=== PATIENT | male | born 1945 | race Caucasian/White ===

== ENCOUNTER 2017-10-21 12:35 | Inpatient (IN) | payer MEDICARE ==
[~2017-10-21] VITALS: Ht 172.7 cm; Wt 84.4 kg
[2017-10-21] VITALS (13 sets, daily range): BP systolic 92–123; BP diastolic 53–80
[2017-10-21 13:13] LABS: BASOPHILS % (AUTO) 0.4 % (0.0-5.0); EOSINOPHILS % (AUTO) 1.7 % (0.0-8.0); HEMATOCRIT 36.7 % (42-54); LYMPHOCYTES % (AUTO) 11.7 % (21.0-51.0); MEAN CORPUSCULAR HEMOGLOBIN 33.5 pg (27.0-33.0); MEAN CORPUSCULAR HGB CONC 34.1 g/dL (32.0-36.0); MEAN CORPUSCULAR VOLUME 98.1 fL (79-99); NEUTROPHILS % (AUTO) 75.2 % (40.0-77.0); PLATELET COUNT (AUTO) 137 K/uL (130-400); RED BLOOD CELL COUNT(AUTO) 3.74 MIL/uL (4.50-6.20); RED CELL DISTRIBUTION WIDTH 14.1 % (11.0-15.5); WHITE BLOOD COUNT (AUTO) 5.1 K/uL (4.8-10.8)
[2017-10-21 13:23] LABS: CREATININE 1.6 mg/dL (0.5-1.5); POTASSIUM 4.6 mmol/L (3.5-5.1)
[2017-10-21 13:36] LABS: ALBUMIN 3.3 g/dL (3.5-5.0); BILIRUBIN,TOTAL 0.7 mg/dL (0.2-1.0); CREATINE KINASE MB 1.4 ng/mL (0.5-3.6); TOTAL PROTEIN, SERUM 7.4 g/dL (6.0-8.3)
[2017-10-21 13:43] LABS: INR 2.95 (0.85-1.15); PROTHROMBIN TIME 30.3 SEC (9.6-11.6)
[2017-10-21 14:21] LABS: APPEARANCE,URINE Clear (CLEAR); BILIRUBIN,URINE Negative (NEGATIVE); COLOR,URINE Yellow (YELLOW); GLUCOSE, URINE (UA) Negative (NEGATIVE); KETONES,URINE Negative (NEGATIVE); LEUKOCYTE ESTERASE ,URINE Negative (NEGATIVE); NITRATE,URINE Negative (NEGATIVE); OCCULT BLOOD,URINE Negative (NEGATIVE); PH,URINE 6.5 (5.0-8.0); PROTEIN,URINE Negative (NEGATIVE); UROBILINOGEN,URINE 0.2 mg/dL (0.2-1.0)
[2017-10-21] MEDS ORDERED: LIDOCAINE 2G/250ML 250 ML IV ONE (14:38)
[2017-10-21 21:44] LABS: CREATINE KINASE, TOTAL 33 U/L (21-232); MYOGLOBIN 72 ng/mL (10-92); TROPONIN I < 0.04 ng/mL (0.00-0.06)
[2017-10-21] MEDS ORDERED: ACETAMINOPHEN 325 MG TAB PO PRN ×2 (22:45)
[2017-10-21] MEDS ORDERED: LACTULOSE 20 GM/30 ML UDCUP PO PRN (22:45)
[2017-10-21] MEDS ORDERED: CLONIDINE HCL 0.1 MG TABLET PO PRN (22:45)
[2017-10-21] MEDS ORDERED: POTASSIUM CHLORIDE 20 MEQ ERTAB PO PRN (23:30)
[2017-10-21] MEDS ORDERED: POTASSIUM CHLORIDE 20MEQ/100ML 100 ML IV PRN (23:30)
[2017-10-21] MEDS ORDERED: LIDOCAINE HCL-MPF 1% 2ML VIAL IVP PRN (23:30)
[2017-10-21] MEDS ORDERED: POTASSIUM CHLORIDE 10% ELIXIR 20 MEQ/15 ML UDCUP PO PRN (23:30)
[2017-10-22] VITALS (24 sets, daily range): BP systolic 95–151; BP diastolic 55–99
[2017-10-22 05:45] LABS: BASOPHILS % (AUTO) 0.4 % (0.0-5.0); EOSINOPHILS % (AUTO) 0.8 % (0.0-8.0); HEMATOCRIT 36.2 % (42-54); MEAN CORPUSCULAR HEMOGLOBIN 34.1 pg (27.0-33.0); MEAN CORPUSCULAR HGB CONC 35.1 g/dL (32.0-36.0); MEAN CORPUSCULAR VOLUME 97.2 fL (79-99); MONOCYTES % (AUTO) 9.4 % (3.0-13.0); NEUTROPHILS % (AUTO) 75.4 % (40.0-77.0); PLATELET COUNT (AUTO) 135 K/uL (130-400); RED BLOOD CELL COUNT(AUTO) 3.73 MIL/uL (4.50-6.20); RED CELL DISTRIBUTION WIDTH 14.1 % (11.0-15.5); WHITE BLOOD COUNT (AUTO) 6.3 K/uL (4.8-10.8)
[2017-10-22 05:58] LABS: INR 2.45 (0.85-1.15); PROTHROMBIN TIME 25.3 SEC (9.6-11.6)
[2017-10-22 06:16] LABS: CARBON DIOXIDE 25 mmol/L (21-32); CHLORIDE 106 mmol/L (101-111); CREATINE KINASE MB 0.9 ng/mL (0.5-3.6); CREATINE KINASE, TOTAL 26 U/L (21-232); CREATININE 1.6 mg/dL (0.5-1.5); GLOMERULAR FILTR. RATE CALC 45 mL/min (>60); GLUCOSE,RANDOM 91 mg/dL (70-105); MYOGLOBIN 58 ng/mL (10-92); PHOSPHORUS 4.2 mg/dL (2.5-4.9); POTASSIUM 4.4 mmol/L (3.5-5.1); SODIUM SERUM 140 mmol/L (136-145); THYROID STIMULATING HORMONE 4.27 uIU/mL (0.36-3.74); TROPONIN I < 0.04 ng/mL (0.00-0.06); UREA NITROGEN, BLOOD 26 mg/dL (7-18)
[2017-10-22] MEDS ORDERED: CARV12.511 PO (06:44)
[2017-10-22] MEDS ORDERED: WARF2.5T85 PO (06:44)
[2017-10-22] MEDS ORDERED: OMEP20CA10 PO (06:44)
[2017-10-22] MEDS ORDERED: SPIR25TA6 PO (06:44)
[2017-10-22] MEDS ORDERED: WARF-57 PO (06:44)
[2017-10-22] MEDS ORDERED: FURO40TA5 PO (06:44)
[2017-10-22] MEDS ORDERED: LISI-617 PO (06:44)
[2017-10-22] MEDS: FAMOTIDINE 20MG TAB 20 MG TAB PO SCH (08:33)
[2017-10-22] MEDS ORDERED: ENOXAPARIN SODIUM 40 MG/0.4 ML SYRINGE SQ SCH (09:00)
[2017-10-22] MEDS: MAGNESIUM 2GM PREMIX 50ML 50 ML IV PRN (11:07)
[2017-10-22] MEDS ORDERED: SODIUM CHLORIDE 0.9% 1000ML 1,000 ML IV ONE (14:47)
[2017-10-22] MEDS ORDERED: PHARMACY COMMUNICATION MISC SCH (15:15)
[2017-10-22] MEDS: LIDOCAINE 2G/250ML 250 ML IV SCH (16:55)
[2017-10-22] MEDS ORDERED: POTA10CA44 PO (17:29)
[2017-10-22] MEDS ORDERED: FUROSEMIDE 10 MG/ML 4ML VIAL IV SCH (17:53)
[2017-10-22] MEDS: NITROGLYCERIN 1GM/1 INCH PACKET TD SCH (18:01)
[2017-10-22] MEDS: CARVEDILOL 12.5 MG TABLET PO SCH (21:06)
[2017-10-23] VITALS (23 sets, daily range): BP systolic 91–110; BP diastolic 47–77
[2017-10-23] MEDS: NITROGLYCERIN 1GM/1 INCH PACKET TD SCH ×4 (00:06→17:34)
[2017-10-23 04:14] LABS: HEMATOCRIT 36.2 % (42-54); MEAN CORPUSCULAR HEMOGLOBIN 34.8 pg (27.0-33.0); MEAN CORPUSCULAR HGB CONC 35.4 g/dL (32.0-36.0); MEAN CORPUSCULAR VOLUME 98.2 fL (79-99); PLATELET COUNT (AUTO) 129 K/uL (130-400); RED BLOOD CELL COUNT(AUTO) 3.68 MIL/uL (4.50-6.20); RED CELL DISTRIBUTION WIDTH 14.4 % (11.0-15.5); WHITE BLOOD COUNT (AUTO) 8.1 K/uL (4.8-10.8)
[2017-10-23 04:30] LABS: INR 2.02 (0.85-1.15); PROTHROMBIN TIME 20.9 SEC (9.6-11.6)
[2017-10-23 04:36] LABS: CREATININE 1.7 mg/dL (0.5-1.5); MAGNESIUM 2.1 mg/dL (1.80-2.40); POTASSIUM 4.7 mmol/L (3.5-5.1)
[2017-10-23] MEDS: LIDOCAINE 2G/250ML 250 ML IV SCH ×2 (06:44→19:47)
[2017-10-23 06:51] LABS: INR 1.97 (0.85-1.15); PROTHROMBIN TIME 20.4 SEC (9.6-11.6)
[2017-10-23] MEDS ORDERED: IOPAMIDOL-370 75 ML VIAL IV ONE (07:10)
[2017-10-23] MEDS ORDERED: LIDOCAINE PF 2% 5ML ABBOJECT ONE (07:10)
[2017-10-23] MEDS ORDERED: HEPARIN SODIUM 1000UNIT/ML 10ML VIAL ONE ×2 (07:10→09:48)
[2017-10-23] MEDS ORDERED: MEPERIDINE-PF 25 MG/ML SYG ONE (07:10)
[2017-10-23] MEDS ORDERED: MIDAZOLAM HCL 1 MG/ML 2ML VIAL ONE (07:10)
[2017-10-23] MEDS ORDERED: IOPAMIDOL-370 100 ML VIAL IV ONE ×2 (07:10→08:00)
[2017-10-23] MEDS ORDERED: NITROGLYCERIN 5 MG/ML 10 ML VIAL IV ONE (07:10)
[2017-10-23] MEDS ORDERED: ISOVUE-370 50ML VIAL IV ONE (07:10)
[2017-10-23] MEDS ORDERED: LIDOCAINE HCL 2% 20ML ONE (07:10)
[2017-10-23] MEDS ORDERED: SODIUM BICARB 50MEQ 50ML VIAL ONE (07:11)
[2017-10-23] MEDS ORDERED: FUROSEMIDE 40 MG TABLET PO SCH (09:00)
[2017-10-23] MEDS ORDERED: TICAGRELOR 90 MG TABLET ONE (10:55)
[2017-10-23] MEDS ORDERED: SODIUM CHLORIDE 0.9% 500ML 500 ML IV SCH (11:02)
[2017-10-23] MEDS ORDERED: ONDANSETRON HCL 4 MG/2 ML VIAL IVP SCH (11:15)
[2017-10-23] MEDS ORDERED: MORPHINE SULFATE 5 MG/ML VIAL IVP SCH (11:15)
[2017-10-23] MEDS ORDERED: ONDANSETRON HCL 4 MG/2 ML VIAL IVP PRN (11:15)
[2017-10-23] MEDS ORDERED: MORPHINE SULFATE 4 MG/1ML SYG IV PRN (11:15)
[2017-10-23] MEDS ORDERED: MORPHINE SULFATE 5 MG/ML VIAL IV PRN (11:15)
[2017-10-23] MEDS ORDERED: HEPARIN 25000 UNITS/250 ML D5W 250 ML IV PRN (11:15)
[2017-10-23] MEDS ORDERED: PHARMACY COMMUNICATION MISC SCH ×2 (11:30→12:30)
[2017-10-23] MEDS ORDERED: DEXTROSE 5%-WATER 500 ML IV ONE (12:32)
[2017-10-23] MEDS ORDERED: HEPARIN SODIUM 5000 UNIT/ML 25,000 UNIT in DEXTROSE 5%-WATER 500 ML SQ SCH (12:45)
[2017-10-23] MEDS ORDERED: ALPRAZOLAM 0.5 MG TABLET ONE (12:49)
[2017-10-23] MEDS: FUROSEMIDE 10 MG/ML 4ML VIAL IV SCH (12:50)
[2017-10-23] MEDS: CARVEDILOL 12.5 MG TABLET PO SCH ×2 (12:51→21:11)
[2017-10-23] MEDS: ALPRAZOLAM 0.5 MG TABLET PO SCH ×2 (12:51→21:12)
[2017-10-23] MEDS: SPIRONOLACTONE 25 MG TAB PO SCH (12:54)
[2017-10-23] MEDS: FAMOTIDINE 20MG TAB 20 MG TAB PO SCH (12:54)
[2017-10-23] MEDS: LISINOPRIL 5 MG TABLET PO SCH (12:55)
[2017-10-23] MEDS: SODIUM CHLORIDE 0.9% 1000ML 1,000 ML IV SCH ×2 (12:56→19:44)
[2017-10-23 13:13] LABS: HEMATOCRIT 34.5 % (42-54); MEAN CORPUSCULAR HEMOGLOBIN 34.1 pg (27.0-33.0); MEAN CORPUSCULAR HGB CONC 35.1 g/dL (32.0-36.0); MEAN CORPUSCULAR VOLUME 97.2 fL (79-99); PLATELET COUNT (AUTO) 119 K/uL (130-400); RED BLOOD CELL COUNT(AUTO) 3.55 MIL/uL (4.50-6.20); RED CELL DISTRIBUTION WIDTH 14.5 % (11.0-15.5); WHITE BLOOD COUNT (AUTO) 6.8 K/uL (4.8-10.8)
[2017-10-23 13:51] LABS: CREATINE KINASE MB 1.2 ng/mL (0.5-3.6); CREATININE 1.5 mg/dL (0.5-1.5); POTASSIUM 4.5 mmol/L (3.5-5.1); TROPONIN I 0.24 ng/mL (0.00-0.06)
[2017-10-23 14:10] LABS: B-TYPE NATRIURETIC PEPTIDE 2570 pg/mL (0-100)
[2017-10-23] MEDS: MEXILETINE HCL 150 MG CAP PO SCH ×2 (17:31→22:02)
[2017-10-23] MEDS: TICAGRELOR 90 MG TABLET PO SCH (21:11)
[2017-10-24] VITALS (36 sets, daily range): BP systolic 77–108; BP diastolic 39–79
[2017-10-24] MEDS: NITROGLYCERIN 1GM/1 INCH PACKET TD SCH ×3 (00:19→11:29)
[2017-10-24 04:15] LABS: HEMATOCRIT 32.9 % (42-54); MEAN CORPUSCULAR HEMOGLOBIN 34.3 pg (27.0-33.0); MEAN CORPUSCULAR HGB CONC 34.7 g/dL (32.0-36.0); MEAN CORPUSCULAR VOLUME 98.9 fL (79-99); PLATELET COUNT (AUTO) 97 K/uL (130-400); RED BLOOD CELL COUNT(AUTO) 3.33 MIL/uL (4.50-6.20); RED CELL DISTRIBUTION WIDTH 14.4 % (11.0-15.5); WHITE BLOOD COUNT (AUTO) 9.2 K/uL (4.8-10.8)
[2017-10-24 04:27] LABS: INR 1.68 (0.85-1.15); PARTIAL THROMBOPLASTIN TIME 52.5 SEC (26.3-35.5); PROTHROMBIN TIME 17.5 SEC (9.6-11.6)
[2017-10-24 05:25] LABS: ALBUMIN 2.5 g/dL (3.5-5.0); BILIRUBIN,TOTAL 1.6 mg/dL (0.2-1.0); POTASSIUM 4.7 mmol/L (3.5-5.1); TOTAL PROTEIN, SERUM 6.6 g/dL (6.0-8.3)
[2017-10-24] MEDS: MEXILETINE HCL 150 MG CAP PO SCH ×2 (05:32→13:01)
[2017-10-24 07:53] LABS: INR 1.68 (0.85-1.15); PARTIAL THROMBOPLASTIN TIME 51.6 SEC (26.3-35.5); PROTHROMBIN TIME 17.5 SEC (9.6-11.6)
[2017-10-24 08:38] LABS: INR 1.66 (0.85-1.15); PARTIAL THROMBOPLASTIN TIME 49.9 SEC (26.3-35.5); PROTHROMBIN TIME 17.3 SEC (9.6-11.6)
[2017-10-24] MEDS: LISINOPRIL 5 MG TABLET PO SCH (09:00)
[2017-10-24] MEDS: ALPRAZOLAM 0.5 MG TABLET PO SCH (09:00)
[2017-10-24] MEDS: CARVEDILOL 12.5 MG TABLET PO SCH (09:00)
[2017-10-24] MEDS ORDERED: SODIUM CHLORIDE 0.9% 1000ML 1,000 ML IV ONE (09:01)
[2017-10-24] MEDS: FUROSEMIDE 10 MG/ML 4ML VIAL IV SCH (10:01)
[2017-10-24] MEDS: SPIRONOLACTONE 25 MG TAB PO SCH (10:02)
[2017-10-24] MEDS: FAMOTIDINE 20MG TAB 20 MG TAB PO SCH (10:02)
[2017-10-24] MEDS: TICAGRELOR 90 MG TABLET PO SCH ×2 (10:03→20:31)
[2017-10-24] MEDS: MAGNESIUM 2GM PREMIX 50ML 50 ML IV PRN (13:10)
[2017-10-24] MEDS: APIXABAN 2.5 MG TABLET PO SCH (13:20)
[2017-10-24] MEDS: MILRINONE-D5W 20 MG/100 ML 100 ML IV SCH (13:38)
[2017-10-24 13:44] LABS: MAGNESIUM 2.1 mg/dL (1.80-2.40); POTASSIUM 4.8 mmol/L (3.5-5.1)
[2017-10-24 15:06] LABS: ABG BASE EXCESS -7.8 mmol/L (-2.0-3.0); ABG HCO3 16.2 mmol/L (21.0-28.0); ABG OXYGEN SATURATION 98.8 % (95.0-99.0); ABG PCO2 30 mmHg (35-48)
[2017-10-24] MEDS ORDERED: SODIUM BICARB 50MEQ 50ML VIAL ONE (15:13)
[2017-10-24] MEDS ORDERED: SODIUM BICARB 50MEQ 50ML VIAL IV ONE (15:15)
[2017-10-24] MEDS ORDERED: HEPARIN SODIUM 5000UNIT/ML 1ML VIAL IV PRN (15:30)
[2017-10-24] MEDS: FUROSEMIDE 10 MG/ML 2ML VIAL IV SCH (17:24)
[2017-10-24] MEDS ORDERED: LIDOCAINE 2G/250ML 250 ML IV ONE (18:32)
[2017-10-24] MEDS ORDERED: PHARMACY COMMUNICATION MISC SCH ×2 (18:45)
[2017-10-24] MEDS ORDERED: LIDOCAINE PF 2% 5ML ABBOJECT IVP ONE (18:45)
[2017-10-24 19:58] LABS: CREATINE KINASE MB 4.9 ng/mL (0.5-3.6)
[2017-10-24 20:00] LABS: TROPONIN I 3.08 ng/mL (0.00-0.06)
[2017-10-24] MEDS ORDERED: FUROSEMIDE 10 MG/ML 2ML VIAL IV SCH (21:00)
[2017-10-25] VITALS (27 sets, daily range): BP systolic 71–121; BP diastolic 38–79
[2017-10-25] MEDS ORDERED: LIDOCAINE PF 2% 5ML ABBOJECT ONE (01:12)
[2017-10-25] MEDS: MAGNESIUM 2GM PREMIX 50ML 50 ML IV PRN (01:27)
[2017-10-25] MEDS: FUROSEMIDE 10 MG/ML 2ML VIAL IV SCH ×3 (02:00→18:30)
[2017-10-25 04:13] LABS: HEMATOCRIT 29.9 % (42-54); MEAN CORPUSCULAR HEMOGLOBIN 34.4 pg (27.0-33.0); MEAN CORPUSCULAR HGB CONC 34.7 g/dL (32.0-36.0); MEAN CORPUSCULAR VOLUME 99.2 fL (79-99); PLATELET COUNT (AUTO) 64 K/uL (130-400); RED BLOOD CELL COUNT(AUTO) 3.02 MIL/uL (4.50-6.20); RED CELL DISTRIBUTION WIDTH 14.8 % (11.0-15.5); WHITE BLOOD COUNT (AUTO) 12.2 K/uL (4.8-10.8)
[2017-10-25] MEDS ORDERED: AMIODARONE HCL 50 MG/ML 3 ML VIAL ONE (04:13)
[2017-10-25] MEDS ORDERED: DEXTROSE 5%-WATER 1,000 ML IV ONE (04:15)
[2017-10-25 04:19] LABS: CREATININE 3.3 mg/dL (0.5-1.5)
[2017-10-25 04:29] LABS: INR 1.64 (0.85-1.15); PARTIAL THROMBOPLASTIN TIME 40.1 SEC (26.3-35.5); PROTHROMBIN TIME 17.1 SEC (9.6-11.6)
[2017-10-25] MEDS ORDERED: AMIODARONE HCL 900 MG in DEXTROSE 5%-WATER 500 ML IV SCH (06:30)
[2017-10-25] MEDS: APIXABAN 2.5 MG TABLET PO SCH ×2 (08:07→20:51)
[2017-10-25] MEDS: FAMOTIDINE 20MG TAB 20 MG TAB PO SCH (08:07)
[2017-10-25] MEDS: TICAGRELOR 90 MG TABLET PO SCH ×2 (08:07→20:51)
[2017-10-25 08:58] LABS: HEMATOCRIT 30.1 % (42-54); MEAN CORPUSCULAR HEMOGLOBIN 34.8 pg (27.0-33.0); MEAN CORPUSCULAR HGB CONC 35.1 g/dL (32.0-36.0); MEAN CORPUSCULAR VOLUME 99.1 fL (79-99); PLATELET COUNT (AUTO) 114 K/uL (130-400); RED BLOOD CELL COUNT(AUTO) 3.04 MIL/uL (4.50-6.20); RED CELL DISTRIBUTION WIDTH 14.7 % (11.0-15.5); WHITE BLOOD COUNT (AUTO) 11.3 K/uL (4.8-10.8)
[2017-10-25 09:23] LABS: CREATINE KINASE MB 4.2 ng/mL (0.5-3.6)
[2017-10-25 09:55] LABS: B-TYPE NATRIURETIC PEPTIDE 3220 pg/mL (0-100)
[2017-10-25 10:09] LABS: TROPONIN I 1.95 ng/mL (0.00-0.06)
[2017-10-25 10:24] LABS: ALBUMIN 2.5 g/dL (3.5-5.0); BILIRUBIN,TOTAL 0.8 mg/dL (0.2-1.0); CREATININE 3.8 mg/dL (0.5-1.5); POTASSIUM 4.1 mmol/L (3.5-5.1); TOTAL PROTEIN, SERUM 6.1 g/dL (6.0-8.3)
[2017-10-25] MEDS ORDERED: AMIODARONE HCL 150 MG in DEXTROSE 5%-WATER 100 ML IV SCH (10:33)
[2017-10-25] MEDS ORDERED: DIGOXIN 250 MCG/ML 2ML AMP ONE (12:10)
[2017-10-25] MEDS ORDERED: MORPHINE SULFATE 10 MG/ML 1ML SYG ONE (12:12)
[2017-10-25] MEDS ORDERED: DIGOXIN 250 MCG/ML 2ML AMP IV SCH ×3 (12:15→19:00)
[2017-10-25] MEDS ORDERED: MORPHINE SULFATE 5 MG/ML VIAL IV SCH (12:15)
[2017-10-25] MEDS ORDERED: PHARMACY COMMUNICATION MISC SCH ×2 (12:30→12:45)
[2017-10-25] MEDS ORDERED: PROCAINAMIDE HCL IVP SCH (12:45)
[2017-10-25] MEDS ORDERED: SODIUM CHLORIDE 0.9% IVP SCH (12:45)
[2017-10-25] MEDS ORDERED: PROCAINAMIDE HCL IVP NR (12:45)
[2017-10-25] MEDS ORDERED: SODIUM CHLORIDE 0.9% IVP NR (12:45)
[2017-10-25] MEDS: MILRINONE-D5W 20 MG/100 ML 100 ML IV SCH (12:54)
[2017-10-25] MEDS: LIDOCAINE 2G/250ML 250 ML IV SCH (12:56)
[2017-10-25] MEDS ORDERED: LIDOCAINE 2G/250ML 250 ML IV SCH (13:00)
[2017-10-25 18:35] LABS: APPEARANCE,URINE TURBID (CLEAR); BILIRUBIN,URINE NEGATIVE (NEGATIVE); COLOR,URINE BROWN (YELLOW); GLUCOSE, URINE (UA) NEGATIVE (NEGATIVE); KETONES,URINE NEGATIVE (NEGATIVE); LEUKOCYTE ESTERASE ,URINE MODERATE (NEGATIVE); NITRATE,URINE NEGATIVE (NEGATIVE); OCCULT BLOOD,URINE LARGE (NEGATIVE); PROTEIN,URINE 30 (NEGATIVE); UROBILINOGEN,URINE 0.2 mg/dL (0.2-1.0)
[2017-10-25 18:38] LABS: SODIUM,URINE RANDOM 24 mmol/l (40-220)
[2017-10-25 18:45] LABS: BACTERIA,URINE Moderate /HPF (None Seen); RBC,URINE 51-100 /HPF (0-1); WBC,URINE >100 /HPF (0-1)
[2017-10-25 18:46] LABS: SQUAMOUS EPITHELIAL CELL,UR Rare /HPF (0-2)
[2017-10-25 18:47] LABS: AMORPHOUS SEDIMENT,UR Few /LPF (None Seen); COARSE GRANULAR CASTS,URINE 26-50 /LPF (None Seen)
[2017-10-25 18:48] LABS: MUCUS,URINE Rare LPF (None Seen)
[2017-10-26] VITALS (27 sets, daily range): BP systolic 80–114; BP diastolic 29–73
[2017-10-26] MEDS: FUROSEMIDE 10 MG/ML 2ML VIAL IV SCH ×3 (02:15→21:31)
[2017-10-26 04:15] LABS: HEMATOCRIT 29.6 % (42-54); MEAN CORPUSCULAR HEMOGLOBIN 33.8 pg (27.0-33.0); MEAN CORPUSCULAR HGB CONC 34.8 g/dL (32.0-36.0); MEAN CORPUSCULAR VOLUME 97.3 fL (79-99); PLATELET COUNT (AUTO) 133 K/uL (130-400); RED BLOOD CELL COUNT(AUTO) 3.04 MIL/uL (4.50-6.20); RED CELL DISTRIBUTION WIDTH 14.2 % (11.0-15.5); WHITE BLOOD COUNT (AUTO) 10.3 K/uL (4.8-10.8)
[2017-10-26] MEDS: LIDOCAINE 2G/250ML 250 ML IV SCH (04:26)
[2017-10-26] MEDS: MILRINONE-D5W 20 MG/100 ML 100 ML IV SCH ×2 (04:27→20:36)
[2017-10-26 04:30] LABS: PLATELET MORPHOLOGY COMMENT ADEQUATE
[2017-10-26 04:36] LABS: EOSINOPHILS % (MANUAL) 2 % (1-6); LYMPHOCYTES % (MANUAL) 3 % (22-44); MAN.DIFF COMMENT-IMPRESSION MANUAL DIFFERENTIAL; MONOCYTES % (MANUAL) 14 % (2-9); SEGMENTED NEUTROPHILS % 81 % (40-70)
[2017-10-26 04:56] LABS: ALBUMIN 2.4 g/dL (3.5-5.0); BILIRUBIN,TOTAL 0.6 mg/dL (0.2-1.0); CREATINE KINASE MB 5.6 ng/mL (0.5-3.6); CREATININE 4.7 mg/dL (0.5-1.5); MAGNESIUM 2.9 mg/dL (1.80-2.40); PHOSPHORUS 5.1 mg/dL (2.5-4.9); POTASSIUM 4.2 mmol/L (3.5-5.1); TOTAL PROTEIN, SERUM 6.2 g/dL (6.0-8.3); URIC ACID 8.3 mg/dL (2.6-7.2)
[2017-10-26 04:57] LABS: TROPONIN I 2.56 ng/mL (0.00-0.06)
[2017-10-26] MEDS: TICAGRELOR 90 MG TABLET PO SCH ×2 (09:36→21:31)
[2017-10-26] MEDS: THIAMINE HCL 100 MG/ML 2ML VIAL IVP SCH (09:36)
[2017-10-26] MEDS: FAMOTIDINE 20MG TAB 20 MG TAB PO SCH (09:37)
[2017-10-26] MEDS: APIXABAN 2.5 MG TABLET PO SCH ×2 (09:37→21:31)
[2017-10-26] MEDS: FOLIC ACID/VITAMIN B COMP W-C 1 MG CAPSULE PO SCH (09:37)
[2017-10-26] MEDS: ALPRAZOLAM 0.25 MG TABLET PO SCH ×2 (14:24→21:31)
[2017-10-26] MEDS ORDERED: MORPHINE SULFATE 4 MG/1ML SYG IV PRN (19:15)
[2017-10-27] VITALS (24 sets, daily range): BP systolic 79–134; BP diastolic 42–87
[2017-10-27 03:53] LABS: HEMATOCRIT 28.1 % (42-54); MEAN CORPUSCULAR HEMOGLOBIN 35.4 pg (27.0-33.0); MEAN CORPUSCULAR VOLUME 98.2 fL (79-99); PLATELET COUNT (AUTO) 136 K/uL (130-400); RED BLOOD CELL COUNT(AUTO) 2.86 MIL/uL (4.50-6.20); RED CELL DISTRIBUTION WIDTH 14.3 % (11.0-15.5); WHITE BLOOD COUNT (AUTO) 8.8 K/uL (4.8-10.8)
[2017-10-27 04:27] LABS: ALBUMIN 2.3 g/dL (3.5-5.0); BILIRUBIN,TOTAL 0.5 mg/dL (0.2-1.0); CREATININE 5.7 mg/dL (0.5-1.5); MAGNESIUM 2.8 mg/dL (1.80-2.40); PHOSPHORUS 5.7 mg/dL (2.5-4.9); POTASSIUM 4.5 mmol/L (3.5-5.1); TOTAL PROTEIN, SERUM 5.8 g/dL (6.0-8.3)
[2017-10-27 04:29] LABS: TROPONIN I 1.16 ng/mL (0.00-0.06)
[2017-10-27 05:04] LABS: ABG HCO3 19.2 mmol/L (21.0-28.0); ABG OXYGEN SATURATION 98.2 % (95.0-99.0); ABG PCO2 33 mmHg (35-48)
[2017-10-27] MEDS: LIDOCAINE 2G/250ML 250 ML IV SCH (06:10)
[2017-10-27] MEDS ORDERED: AMIODARONE HCL 50 MG/ML 3 ML VIAL ONE (06:32)
[2017-10-27] MEDS ORDERED: SODIUM CHLORIDE 0.9% 100 ML IV ONE (06:32)
[2017-10-27] MEDS ORDERED: AMIODARONE HCL 150 MG in DEXTROSE 5%-WATER 100 ML IV SCH (06:45)
[2017-10-27] MEDS: ALPRAZOLAM 0.5 MG TABLET PO PRN ×2 (07:07→14:45)
[2017-10-27] MEDS ORDERED: METOPROLOL TARTRATE 1 MG/ML 5ML VIAL IV ONE ×4 (07:41→10:00)
[2017-10-27] MEDS: METOPROLOL TARTRATE 1 MG/ML 5ML VIAL IV ONE ×2 (07:56→08:00)
[2017-10-27] MEDS ORDERED: LIDOCAINE PF 2% 5ML ABBOJECT IV ONE (08:00)
[2017-10-27] MEDS ORDERED: METOPROLOL TARTRATE 25 MG TAB PO ONE (08:00)
[2017-10-27] MEDS: APIXABAN 2.5 MG TABLET PO SCH (09:00)
[2017-10-27] MEDS: THIAMINE HCL 100 MG/ML 2ML VIAL IVP SCH (09:00)
[2017-10-27] MEDS: FOLIC ACID/VITAMIN B COMP W-C 1 MG CAPSULE PO SCH (09:00)
[2017-10-27] MEDS: FAMOTIDINE 20MG TAB 20 MG TAB PO SCH (09:00)
[2017-10-27] MEDS: ALPRAZOLAM 0.25 MG TABLET PO SCH ×2 (09:00→20:17)
[2017-10-27] MEDS: TICAGRELOR 90 MG TABLET PO SCH (09:00)
[2017-10-27] MEDS: FUROSEMIDE 10 MG/ML 2ML VIAL IV SCH (11:17)
[2017-10-27] MEDS ORDERED: HALOPERIDOL 1 MG TABLET PO PRN (16:30)
[2017-10-27] MEDS ORDERED: LORAZEPAM 2 MG/ML 1 ML VIAL IVP PRN (16:45)
[2017-10-27] MEDS: MORPHINE SULFATE 2 MG/ML 1ML SYG IVP PRN ×3 (17:00→21:28)
[2017-10-27] MEDS ORDERED: DiphenhydrAMINE HCL 50 MG/ML VIAL ONE (18:49)
[2017-10-27] MEDS ORDERED: DiphenhydrAMINE HCL 50 MG/ML VIAL IV PRN (19:00)
[2017-10-27] MEDS ORDERED: FUROSEMIDE 10 MG/ML 2ML VIAL IV SCH (21:00)
[2017-10-28] MEDS: MORPHINE SULFATE 2 MG/ML 1ML SYG IVP PRN (00:03)
[2017-10-28] MEDS: ALPRAZOLAM 0.5 MG TABLET PO PRN (02:14)
== END 2017-10-28 06:22 | disposition expired | DRG 215 ==
LOC: EDH 12:35 → EDHIP 14:16 → 2CH 20:52
PROVIDERS: ADMIT Internal Medicine Pulmonary Disease; ATTEND Internal Medicine Pulmonary Disease
PROC: 027237Z Dilation of Coronary Artery, Three Arteries with Four or More Drug-eluting Intraluminal Devices, Percutaneous Approach (ICD-10-PCS; principal; 2017-10-23)
PROC: 4A023N7 Measurement of Cardiac Sampling and Pressure, Left Heart, Percutaneous Approach (ICD-10-PCS; 2017-10-23)
PROC: B2111ZZ Fluoroscopy of Multiple Coronary Arteries using Low Osmolar Contrast (ICD-10-PCS; 2017-10-23)
PROC: B2121ZZ Fluoroscopy of Single Coronary Artery Bypass Graft using Low Osmolar Contrast (ICD-10-PCS; 2017-10-23)
PROC: B2131ZZ Fluoroscopy of Multiple Coronary Artery Bypass Grafts using Low Osmolar Contrast (ICD-10-PCS; 2017-10-23)
PROC: B3121ZZ Fluoroscopy of Left Subclavian Artery using Low Osmolar Contrast (ICD-10-PCS; 2017-10-23)
PROC: 02HA3RZ Insertion of Short-term External Heart Assist System into Heart, Percutaneous Approach (ICD-10-PCS; 2017-10-23)
PROC: 5A0221D Assistance with Cardiac Output using Impeller Pump, Continuous (ICD-10-PCS; 2017-10-23)
DX: I25.5 Ischemic cardiomyopathy (principal); I26.99 Other pulmonary embolism without acute cor pulmonale; I50.43 Acute on chronic combined systolic (congestive) and diastolic (congestive) heart failure; I47.2 Ventricular tachycardia; N17.9 Acute kidney failure, unspecified; E87.2 Acidosis; I13.0 Hypertensive heart and chronic kidney disease with heart failure and stage 1 through stage 4 chronic kidney disease, or unspecified chronic kidney disease; I25.10 Atherosclerotic heart disease of native coronary artery without angina pectoris; R57.0 Cardiogenic shock; I10 Essential (primary) hypertension; M19.90 Unspecified osteoarthritis, unspecified site; I49.01 Ventricular fibrillation; E11.22 Type 2 diabetes mellitus with diabetic chronic kidney disease; E78.5 Hyperlipidemia, unspecified; I27.20 Pulmonary hypertension, unspecified; I48.91 Unspecified atrial fibrillation; I49.3 Ventricular premature depolarization; K21.9 Gastro-esophageal reflux disease without esophagitis; N18.9 Chronic kidney disease, unspecified; R79.1 Abnormal coagulation profile; Z51.5 Encounter for palliative care; Z66 Do not resuscitate; Z87.891 Personal history of nicotine dependence; D64.9 Anemia, unspecified; Z95.1 Presence of aortocoronary bypass graft; I25.2 Old myocardial infarction; Z79.01 Long term (current) use of anticoagulants; Z82.49 Family history of ischemic heart disease and other diseases of the circulatory system; Z95.810 Presence of automatic (implantable) cardiac defibrillator; Z86.74 Personal history of sudden cardiac arrest; Z86.711 Personal history of pulmonary embolism; Z88.6 Allergy status to analgesic agent; Z79.899 Other long term (current) drug therapy
CPT/HCPCS: 33990; 36415; 36600; 71045; 76770; 80048; 80053; 80061; 81001; 81003; 82550; 82553; 82803; 83605; 83735; 83874; 83880; 83935; 84100; 84132; 84300; 84443; 84484; 84550; 85025; 85027; 85347; 85610; 85730; 86850; 86900; 86901; 93005; 93306; 93308; 93459; 93970; 94660; 99291; A4344; A4357; A6234; C1725; C1769; C1887; C1893; C1894; C9600; C9607; C9608; J0282; J1160; J1200; J1644; J1940; J2001; J2175; J2250; J2260; J2270; J2405; J2690; J3411; J3475; J3490; J7030; J7040; J7060; J7070; Q9967